=== PATIENT | female | born 1960 | race Caucasian/White ===

== ENCOUNTER 2017-02-28 20:43 | Emergency (ER) | payer MEDICAID ==
[~2017-02-28] VITALS: Ht 165.1 cm; Wt 68.0 kg
[~2017-02-28 20:43] MED LIST: ADVAIR 250/501 EA INH; ALBUTEROL0.09 MG/A3 IH; ALLEGRA60 M2 PO; AMIODARONE HCL200 MG PO; AMITRIPTYLINE H75 MG PO; ANAPROX DS550 MG PO; ASPIRIN CHEWABL81 MG PO; AUGMENTIN 875875 MG PO; AZOR 10 MG-20 M1 TAB; Albuterol Sulfat3 ML IH; BENZONATE100 MG PO; BP MED; BRIN10TA PO; CARVEDILOL25 MG PO; CEFTRIAXONE1 GM IJ; CEFUROXIME AXE250 MG PO; CIPRO500 MG PO; CIPROFLOXACIN500 M4 PO; CIPROFLOXACIN500 MG PO; CLINDAMYCIN150 MG PO; CLONIDINE0.1 MG PO; DAYPRO600 M1 PO; DELTASONE10 MG PO; DOXY 100100 MG IV; DOXYCYCLINE100 M2 PO; DULE1ARO INH; DULERA100; DUONEB 3 MG/3 ML3 M1 INH; DUONEB 3 MG/3 ML3 M1 NEB; DUONEB 3ML 3 MG/3 ML INH; DYAZIDE 25 MG-31 CAP PO; EC NAPROSYN375 MG PO; FLAGYL500 MG PO; FLONASE ALLERG9.9 ML NS; HYDRALAZINE HCL25 MG PO; HYDRALAZINE50 MG PO; HYDROCODONE BIT1 T11 PO; IMIPRAMINE HCL50 MG PO; INCRUSE EL62.5 MCG/A IH; INDERAL LA120 MG PO; K-TAB ER8 MEQ PO; KEPPRA500 MG PO; LATU40TA PO; LEADER NIC21 MG/24 H TD; LEVOTHYROXINE0.05 M1 PO; LEVOXYL50 MCG PO; LIPITOR40 MG PO; LISINOPRIL10 M1 PO; LISINOPRIL10 MG PO; LISINOPRIL20 MG PO; LISINOPRIL5 MG PO; METOPROLOL SR50 MG PO; MOTRIN600 MG PO; MOTRIN800 MG PO; Motrin,Rufen800 MG PO; NAPROSYN500 MG PO; NORCO 5-325 TA1 EACH PO; NOVAPLUS SOLU-125 MG IV; OMEPRAZOLE40 MG PO; PENICILLIN-VK500 M1 PO; PERCOCET 325 MG1 TA2 PO; PERCOCET 500 MG1 TAB PO; PREDNICOT10 MG PO; PREDNISONE10 MG PO; PREDNISONE2.5 MG PO; PREDNISONE20 MG PO; PREDNISONE5 MG PO; PRILOSEC40 MG PO; PROPANOLOL; PROPRANOLOL HC120 M1 PO; QUINAPRIL40 MG PO; ROBAXIN750 MG PO; SOLU-MEDROL40 MG PO; SPIRIVA -- 3018 MCG INH; SPIRIVA18 MCG PO; SUDAFED30 MG PO; SYMBICORT1 AER INH; TESSALON PERLE100 M1 PO; TRAMADOL HCL50 MG PO; TRIMOX500 MG PO; ULTRAM50 MG PO; VALIUM5 MG PO; VALTREX500 MG PO; VIBRA-TAB100 MG PO; VIBRAMYCIN100 MG PO; VICO75300 PO; VICODIN 5/500 505 MG PO; VICODIN 500 MG-1 TAB PO; VITAMIN D1000 IU PO; WELLBUTRIN SR150 MG PO; XANAX0.25 MG PO; XANAX0.5 MG PO; XARE15TA PO; XARE20MG PO
[2017-02-28 21:29] LABS: BASO % 0.4 % (0.0-1.0); EOS % 0.7 % (1.0-4.0); HEMATOCRIT 30.3 % (37.0-47.0); HEMOGLOBIN 9.2 g/dl (12.0-16.0); LYMPH # 0.8 10*3/uL (1.3-4.4); LYMPH % 13.8 % (27.0-41.0); MEAN CELL VOLUME 88.3 fl (81.0-99.0); MEAN CORPUSCULAR HGB 26.8 pg (27.0-31.0); MEAN CORPUSCULAR HGB CONC 30.4 g/dl (33.0-37.0); MONO # 0.3 10*3/uL (0.1-1.0); MONO % 5.8 % (3.0-9.0); NEUT # 4.3 10*3/uL (2.3-7.9); NEUT % 78.9 % (47.0-73.0); PLATELET COUNT AUTOMATED 121 10*3/uL (130-400); RED BLOOD COUNT 3.43 10*6/uL (4.10-5.10); RED CELL DISTRI WIDTH 13.2 % (0-14.5); WHITE BLOOD COUNT 5.5 10*3/uL (4.8-10.8)
[2017-02-28 21:44] LABS: BUN 15 mg/dl (7-24); CARBON DIOXIDE 31 mmol/L (21-32); CHLORIDE 110 mmol/L (98-107); EST GLOM FILT AFRICAN AMERICAN > 60 ml/min; GLUCOSE 115 mg/dL (65-99); POTASSIUM 4.1 mmol/L (3.5-5.1); SODIUM 147 mmol/L (136-145)
[2017-03-01 00:12] LABS: URINE AMPHETAMINES < 1000 (1000ng/ml); URINE BARBITURATES < 200 (200ng/ml); URINE COCAINE > 300 (300ng/ml)
[2017-03-01 00:33] LABS: BILIRUBIN NEGATIVE (NEGATIVE); BLOOD NEGATIVE (NEGATIVE); CLARITY CLEAR (CLEAR); COLOR YELLOW (YELLOW); GLUCOSE NEGATIVE (NEGATIVE); KETONE NEGATIVE (NEGATIVE); LEUKO ESTERASE NEGATIVE (NEGATIVE); NITRITE NEGATIVE (NEGATIVE); PROTEIN NEGATIVE (NEGATIVE); SPECIFIC GRAVITY 1.015 (1.005-1.030); UROBILINOGEN 0.2 E.U./dl (0.2-1.0)
[2017-03-01 00:43] LABS: URINE REFLEX COMMENT NO (NO)
[2017-03-01 05:31] VITALS: BP 135/86
== END 2017-03-01 09:26 | disposition home or self-care (01) ==
LOC: ED 20:43
PROVIDERS: Family Medicine
DX: F32.9 Major depressive disorder, single episode, unspecified (principal); J96.12 Chronic respiratory failure with hypercapnia; G43.909 Migraine, unspecified, not intractable, without status migrainosus; J44.9 Chronic obstructive pulmonary disease, unspecified; G40.909 Epilepsy, unspecified, not intractable, without status epilepticus; Z88.6 Allergy status to analgesic agent; Z88.2 Allergy status to sulfonamides; Z88.8 Allergy status to other drugs, medicaments and biological substances; Z98.51 Tubal ligation status; Z98.890 Other specified postprocedural states; Z79.82 Long term (current) use of aspirin; Z79.899 Other long term (current) drug therapy; Z99.81 Dependence on supplemental oxygen

== ENCOUNTER → 2017-04-23 | Day surgery (SDC) | payer MEDICAID ==
[~2017-04-23] VITALS: Ht 165.1 cm; Wt 69.4 kg
[~2017-04-23] MED LIST changes: +HYDROCODONE BIT1 T20 PO; +KROGER NIC21 MG/24 H T
--- NOTE | ~2017-04-23 | WILSON ---
[place], [place] CATARACT EXTRACTION [id number] UN[facility] #: [id number] ROOM: DOCTOR: CHATA BROWNLEE MD DATE: 04/23/17 PREOPERATIVE DIAGNOSIS: Cataract, left eye. POSTOPERATIVE DIAGNOSIS: Cataract, left eye. OPERATION: Extracapsular cataract extraction by phacoemulsification with posterior chamber intraocular lens implantation, left eye. ANESTHESIA: Monitored standby. OPERATIVE FINDINGS AND PROCEDURE: 2% Xylocaine topical anesthetic gel was applied to the eye in the preop area. The patient was taken to the operating room and prepped and draped in the standard fashion for sterile intraocular surgery. A time out procedure was performed verifying correct patient, correct site and corrects lens with Jared Brownlee M.D. The operating microscope was swung into position and the lid speculum was inserted. Using a paracentesis blade, a paracentesis was made through clear cornea. Viscoelastic was used to fill the anterior chamber. Using a metal keratome a 2.4 mm self-sealing clear corneal cataract incision was made temporally at the limbus. Using a pre-bent 25 gauge cystotome needle, a standard continuous curvilinear capsulorrhexis was performed. The anterior capsule was removed with forceps. The lens nucleus was hydrodissected and phacoemulsified in the posterior chamber. Cortical material was removed with the irrigation aspiration hand piece and the posterior capsule was then polished with a curet under irrigation. The posterior chamber and capsular bag were filled with viscoelastic. A posterior chamber intraocular lens manufactured by: [employer], Model #[id number], and 23.0 diopters in strength was then inserted into the posterior chamber and within the capsular bag using the lens cartridge and injector system. Viscoelastic was removed using the irrigation aspiration handpiece. The anterior chamber was filled with balanced salt solution through the paracentesis. Both the paracentesis site and cataract incisions were hydrated with BSS and verified to be water-tight and self-sealing. Cefuroxime 1 mg/0.1 mL was injected into the anterior chamber through the paracentesis site. The incision checked to be water-tight using a Weck-van[place] sponge. The integrity of the cataract wound and ocular tension were checked. Lid speculum and drapes were removed. One drop of Ocuflox was applied to the eye. The patient was transferred from the operating room to the recovery room in satisfactory condition. CHATA ZAPIEN MD CM:OPRECORD:CATARACT EXTRACTION 21 21 CHATA BROWNLEE MD 04/23/171821 BERNARD PRITCHARD MIS.R
[2017-04-23 08:34] VITALS: BP 132/88
[2017-04-23 09:15] VITALS: BP 157/83
[2017-04-23 09:30] VITALS: BP 153/88
[2017-04-23 09:45] VITALS: BP 148/89
== END | disposition home or self-care (01) ==
LOC: SDC 04-17 13:15
DX: H26.9 Unspecified cataract (principal); F41.9 Anxiety disorder, unspecified; F32.9 Major depressive disorder, single episode, unspecified; I10 Essential (primary) hypertension; B19.20 Unspecified viral hepatitis C without hepatic coma; Z86.14 Personal history of Methicillin resistant Staphylococcus aureus infection; Z86.73 Personal history of transient ischemic attack (TIA), and cerebral infarction without residual deficits; Z87.81 Personal history of (healed) traumatic fracture; J43.9 Emphysema, unspecified; I48.91 Unspecified atrial fibrillation; K21.9 Gastro-esophageal reflux disease without esophagitis; E03.9 Hypothyroidism, unspecified; Z98.890 Other specified postprocedural states; Z82.49 Family history of ischemic heart disease and other diseases of the circulatory system; Z87.891 Personal history of nicotine dependence; Z88.2 Allergy status to sulfonamides; Z88.8 Allergy status to other drugs, medicaments and biological substances

== ENCOUNTER 2017-05-12 22:22 | Emergency (ER) | payer MEDICAID ==
[~2017-05-12] VITALS: Ht 162.5 cm; Wt 73.9 kg
[2017-05-12 23:17] LABS: BASO # 0.1 10*3/uL (0.0-0.1); BASO % 1.1 % (0.0-1.0); EOS # 0.2 10*3/uL (0.0-0.4); EOS % 3.6 % (1.0-4.0); HEMOGLOBIN 10.4 g/dl (12.0-16.0); LYMPH # 2.3 10*3/uL (1.3-4.4); LYMPH % 40.7 % (27.0-41.0); MEAN CORPUSCULAR HGB 26.6 pg (27.0-31.0); MEAN CORPUSCULAR HGB CONC 30.6 g/dl (33.0-37.0); MONO # 0.5 10*3/uL (0.1-1.0); MONO % 8.1 % (3.0-9.0); NEUT # 2.6 10*3/uL (2.3-7.9); NEUT % 46.3 % (47.0-73.0); PLATELET COUNT AUTOMATED 119 10*3/uL (130-400); RED BLOOD COUNT 3.91 10*6/uL (4.10-5.10); RED CELL DISTRI WIDTH 13.2 % (0-14.5); WHITE BLOOD COUNT 5.5 10*3/uL (4.8-10.8)
[2017-05-12 23:30] LABS: PROTHROMBIN TIME 10.6 SECONDS (9.0-12.4)
[2017-05-12 23:35] LABS: ALBUMIN 3.6 gm/dl (3.1-4.5); ALKALINE PHOSPHATASE 104 U/L (45-117); BILIRUBIN, TOTAL 0.3 mg/dl (0.2-1.0); BUN 11 mg/dl (7-24); C-REACTIVE PROTEIN < 0.29 MG/DL (0-0.3); CARBON DIOXIDE 32 mmol/L (21-32); CHLORIDE 104 mmol/L (98-107); EST GLOM FILT AFRICAN AMERICAN > 60 ml/min; GLUCOSE 89 mg/dL (65-99); MAGNESIUM 1.7 mg/dL (1.5-2.1); SGOT/AST 37 IU/L (3-35); SGPT/ALT 25 U/L (12-78); SODIUM 142 mmol/L (136-145); TOTAL PROTEIN 6.4 gm/dL (6.4-8.2); TROPONIN I < 0.015 ng/ml (<0.045)
[2017-05-12 23:46] LABS: BILIRUBIN NEGATIVE (NEGATIVE); BLOOD NEGATIVE (NEGATIVE); CLARITY SL CLOUDY (CLEAR); COLOR YELLOW (YELLOW); GLUCOSE NEGATIVE (NEGATIVE); KETONE NEGATIVE (NEGATIVE); LEUKO ESTERASE TRACE (NEGATIVE); NITRITE NEGATIVE (NEGATIVE); PH 6.5 (5.0-9.0); PROTEIN NEGATIVE (NEGATIVE); SPECIFIC GRAVITY <= 1.005 (1.005-1.030); UROBILINOGEN 0.2 E.U./dl (0.2-1.0)
[2017-05-12 23:53] LABS: BACTERIA 2+; URINE REFLEX COMMENT YES (NO)
[2017-05-13 01:10] VITALS: BP 165/102
[2017-05-19] MEDS ORDERED: AMITRIPTYLINE25 MG PO (13:37)
== END 2017-05-13 02:40 | disposition short-term general hospital (02) ==
LOC: ED 22:22
PROVIDERS: Emergency Medicine Emergency Medical Services
DX: G45.9 Transient cerebral ischemic attack, unspecified (principal); J44.9 Chronic obstructive pulmonary disease, unspecified; G43.909 Migraine, unspecified, not intractable, without status migrainosus; Z88.6 Allergy status to analgesic agent; Z88.2 Allergy status to sulfonamides; Z88.8 Allergy status to other drugs, medicaments and biological substances; Z79.899 Other long term (current) drug therapy; Z79.82 Long term (current) use of aspirin

== ENCOUNTER → 2017-05-21 | Day surgery (SDC) | payer MEDICAID ==
[~2017-05-21] VITALS: Ht 162.5 cm; Wt 73.9 kg
[~2017-05-21] MED LIST changes: +AMITRIPTYLINE25 MG PO
--- NOTE | ~2017-05-21 | O ---
[place], [place] OPERATIVE NOTE NAME: LIONEL FRANCISCO UNIT #: [id number] ROOM: DOCTOR: CHATA KEY MD BIRTHDATE: [birth year] DOS: 05/21/2017 PREOPERATIVE DIAGNOSIS: Cataract, right eye. POSTOPERATIVE DIAGNOSIS: Cataract, right eye. OPERATION: Extracapsular cataract extraction by phacoemulsification with posterior chamber intraocular lens implantation, right eye. ANESTHESIA: Monitored standby. OPERATIVE FINDINGS AND PROCEDURE: 2% Xylocaine topical anesthetic gel was applied to the eye in the preop area. The patient was taken to the operating room and prepped and draped in the standard fashion for sterile intraocular surgery. A time out procedure was performed verifying correct patient, correct site and corrects lens with Jared Key M.D. The operating microscope was swung into position and the lid speculum was inserted. Using a Linda paracentesis blade, a paracentesis was made through clear cornea. Viscoelastic was used to fill the anterior chamber. Using a metal keratome a 2.4 mm self-sealing clear corneal cataract incision was made temporally at the limbus. Using a pre-bent 25 gauge cystotome needle, a standard continuous curvilinear capsulorrhexis was performed. The anterior capsule was removed with forceps. The lens nucleus was hydrodissected and phacoemulsified in the posterior chamber. Cortical material was removed with the irrigation aspiration hand piece and the posterior capsule was then polished with a curet under irrigation. The posterior chamber and capsular bag were filled with viscoelastic. A posterior chamber intraocular lens manufactured by: [employer], Model #[id number], and 22.5 diopters in strength were then inserted into the posterior chamber and within the capsular bag using the lens cartridge and injector system. Viscoelastic was removed using the irrigation aspiration handpiece. The anterior chamber was filled with balanced salt solution through the paracentesis. Both the paracentesis site and cataract incisions were hydrated with BSS and verified to be water-tight and self-sealing. Cefuroxime 1 mg/0.1 mL was injected into the anterior chamber through the paracentesis site. The incision checked to be water-tight using a Weck-Yu sponge. The integrity of the cataract wound and ocular tension were checked. Lid speculum and drapes were removed. The patient was transferred from the operating room to the recovery room in satisfactory condition. [place], [place] OPERATIVE NOTE NAME: LIONEL FRANCISCO UNIT #: [id number] ROOM: DOCTOR: CHATA KEY MD BIRTHDATE: [birth year] CHATA KEY MD CM:OPRECORD:OPERATIVE NOTE 1135 [id number] CHATA KEY MD 05/21/17 1337 interface
[2017-05-21 10:36] VITALS: BP 141/91
[2017-05-21 11:33] VITALS: BP 127/88
[2017-05-21 12:00] VITALS: BP 171/98
== END ==
LOC: SDC 05-20 14:00
DX: H26.9 Unspecified cataract (principal); I10 Essential (primary) hypertension; J43.9 Emphysema, unspecified; K21.9 Gastro-esophageal reflux disease without esophagitis; F41.9 Anxiety disorder, unspecified; F32.9 Major depressive disorder, single episode, unspecified; F17.210 Nicotine dependence, cigarettes, uncomplicated; Z98.890 Other specified postprocedural states; Z88.1 Allergy status to other antibiotic agents; Z88.8 Allergy status to other drugs, medicaments and biological substances; J44.9 Chronic obstructive pulmonary disease, unspecified; B19.20 Unspecified viral hepatitis C without hepatic coma; Z86.73 Personal history of transient ischemic attack (TIA), and cerebral infarction without residual deficits; E07.9 Disorder of thyroid, unspecified; Z79.899 Other long term (current) drug therapy; G40.909 Epilepsy, unspecified, not intractable, without status epilepticus

== ENCOUNTER 2017-07-12 13:51 | Emergency (ER) | payer MEDICAID ==
[~2017-07-12] VITALS: Ht 160 cm; Wt 72.6 kg
[2017-07-12 14:39] LABS: BASO % 0.6 % (0.0-1.0); EOS # 0.2 10*3/uL (0.0-0.4); EOS % 2.5 % (1.0-4.0); HEMATOCRIT 38.5 % (37.0-47.0); HEMOGLOBIN 11.8 g/dl (12.0-16.0); LYMPH # 1.3 10*3/uL (1.3-4.4); LYMPH % 18.5 % (27.0-41.0); MEAN CELL VOLUME 88.5 fl (81.0-99.0); MEAN CORPUSCULAR HGB 27.1 pg (27.0-31.0); MEAN CORPUSCULAR HGB CONC 30.6 g/dl (33.0-37.0); MEAN PLATELET VOLUME 9.9 fl (9.6-12.3); MONO # 0.4 10*3/uL (0.1-1.0); MONO % 5.4 % (3.0-9.0); NEUT # 5.2 10*3/uL (2.3-7.9); NEUT % 72.4 % (47.0-73.0); PLATELET COUNT AUTOMATED 151 10*3/uL (130-400); RED BLOOD COUNT 4.35 10*6/uL (4.10-5.10); WHITE BLOOD COUNT 7.2 10*3/uL (4.8-10.8)
[2017-07-12 14:57] LABS: ALBUMIN 3.8 gm/dl (3.1-4.5); ALKALINE PHOSPHATASE 108 U/L (45-117); BUN 16 mg/dl (7-24); CHLORIDE 99 mmol/L (98-107); CREATININE 0.97 mg/dL (0.55-1.02); MAGNESIUM 2.2 mg/dL (1.5-2.1); POTASSIUM 3.9 mmol/L (3.5-5.1); SGOT/AST 44 IU/L (3-35); SGPT/ALT 31 U/L (12-78); SODIUM 140 mmol/L (136-145); TOTAL PROTEIN 7.1 gm/dL (6.4-8.2)
[2017-07-12 15:02] LABS: TROPONIN I < 0.015 ng/ml (<0.045)
[2017-07-12 15:04] VITALS: BP 149/70
[2017-07-12 15:10] LABS: ACT PARTIAL THROMBO TIME 24.3 SECONDS (20.8-31.5)
== END 2017-07-12 16:14 | disposition home or self-care (01) ==
LOC: ED 13:51
PROVIDERS: Nurse Practitioner Family
DX: R20.8 Other disturbances of skin sensation (principal); J96.12 Chronic respiratory failure with hypercapnia; I10 Essential (primary) hypertension; Z86.73 Personal history of transient ischemic attack (TIA), and cerebral infarction without residual deficits; Z98.51 Tubal ligation status; Z98.890 Other specified postprocedural states; Z79.899 Other long term (current) drug therapy; Z79.82 Long term (current) use of aspirin; Z88.6 Allergy status to analgesic agent; Z88.2 Allergy status to sulfonamides; Z88.8 Allergy status to other drugs, medicaments and biological substances; Z99.81 Dependence on supplemental oxygen

== ENCOUNTER 2017-11-06 23:10 | Emergency (ER) | payer MEDICAID ==
[~2017-11-06] VITALS: Ht 165.1 cm; Wt 78.9 kg
[2017-11-06 23:49] LABS: BASO # 0.1 10*3/uL (0.0-0.1); BASO % 0.8 % (0.0-1.0); EOS # 0.3 10*3/uL (0.0-0.4); EOS % 5.2 % (1.0-4.0); HEMATOCRIT 36.4 % (37.0-47.0); HEMOGLOBIN 11.4 g/dl (12.0-16.0); LYMPH % 30.4 % (27.0-41.0); MEAN CELL VOLUME 91.2 fl (81.0-99.0); MEAN CORPUSCULAR HGB 28.6 pg (27.0-31.0); MEAN CORPUSCULAR HGB CONC 31.3 g/dl (33.0-37.0); MEAN PLATELET VOLUME 10.3 fl (9.6-12.3); MONO # 0.6 10*3/uL (0.1-1.0); MONO % 9.6 % (3.0-9.0); NEUT # 3.5 10*3/uL (2.3-7.9); NEUT % 53.4 % (47.0-73.0); PLATELET COUNT AUTOMATED 110 10*3/uL (130-400); RED BLOOD COUNT 3.99 10*6/uL (4.10-5.10); RED CELL DISTRI WIDTH 13.1 % (0-14.5); WHITE BLOOD COUNT 6.5 10*3/uL (4.8-10.8)
[2017-11-07 00:06] LABS: ALBUMIN 3.5 gm/dl (3.1-4.5); ALKALINE PHOSPHATASE 77 U/L (45-117); BUN 4 mg/dl (7-24); CHLORIDE 103 mmol/L (98-107); CREATININE 0.66 mg/dL (0.55-1.02); POTASSIUM 3.9 mmol/L (3.5-5.1); SGOT/AST 38 IU/L (3-35); SGPT/ALT 26 U/L (12-78); SODIUM 142 mmol/L (136-145); TOTAL PROTEIN 6.6 gm/dL (6.4-8.2)
[2017-11-07 00:07] LABS: TROPONIN I 0.047 ng/ml (<0.045)
[2017-11-07] MEDS ORDERED: Phenergan25 MG PO (01:41)
[2017-11-07 02:35] VITALS: BP 154/86
== END 2017-11-07 02:20 | disposition home or self-care (01) ==
LOC: ED 23:10
PROVIDERS: Internal Medicine
DX: K52.9 Noninfective gastroenteritis and colitis, unspecified (principal); J44.9 Chronic obstructive pulmonary disease, unspecified; G43.909 Migraine, unspecified, not intractable, without status migrainosus; Z98.51 Tubal ligation status; Z98.890 Other specified postprocedural states; Z86.73 Personal history of transient ischemic attack (TIA), and cerebral infarction without residual deficits; Z79.899 Other long term (current) drug therapy; Z88.6 Allergy status to analgesic agent; Z88.2 Allergy status to sulfonamides; Z88.8 Allergy status to other drugs, medicaments and biological substances; Z79.82 Long term (current) use of aspirin; Z99.81 Dependence on supplemental oxygen

== ENCOUNTER → 2018-02-18 | Outpatient (CLI) | payer MEDICAID ==
[~2018-02-18] MED LIST changes: +Phenergan25 MG PO
[2018-02-18 12:53] LABS: BASO % 0.4 % (0.0-1.0); EOS # 0.1 10*3/uL (0.0-0.4); EOS % 0.8 % (1.0-4.0); HEMATOCRIT 35.9 % (37.0-47.0); HEMOGLOBIN 11.6 g/dl (12.0-16.0); LYMPH # 1.3 10*3/uL (1.3-4.4); MEAN CELL VOLUME 91.6 fl (81.0-99.0); MEAN CORPUSCULAR HGB 29.6 pg (27.0-31.0); MEAN CORPUSCULAR HGB CONC 32.3 g/dl (33.0-37.0); MEAN PLATELET VOLUME 10.9 fl (9.6-12.3); MONO # 0.3 10*3/uL (0.1-1.0); MONO % 3.3 % (3.0-9.0); NEUT # 6.2 10*3/uL (2.3-7.9); NEUT % 79.1 % (47.0-73.0); PLATELET COUNT AUTOMATED 114 10*3/uL (130-400); RED BLOOD COUNT 3.92 10*6/uL (4.10-5.10); RED CELL DISTRI WIDTH 12.3 % (0-14.5); WHITE BLOOD COUNT 7.9 10*3/uL (4.8-10.8)
[2018-02-18 13:18] LABS: ALBUMIN 3.9 gm/dl (3.1-4.5); ALKALINE PHOSPHATASE 76 U/L (45-117); BUN 8 mg/dl (7-24); CHLORIDE 102 mmol/L (98-107); CHOLESTEROL 108 mg/dL (<200); CREATININE 0.64 mg/dL (0.55-1.02); FREE T4 1.24 ng/dl (0.76-1.46); HDL CHOLESTEROL 61 mg/dl (40-60); LDL CHOLESTEROL 35 mg/dL (9-159); POTASSIUM 3.8 mmol/L (3.5-5.1); SGOT/AST 32 IU/L (3-35); SGPT/ALT 25 U/L (12-78); SODIUM 143 mmol/L (136-145); TOTAL PROTEIN 6.8 gm/dL (6.4-8.2); TRIGLYCERIDES 62 mg/dl (<150); VLDL CHOLESTEROL 12 mg/dL (6-40)
[2018-02-18 14:26] LABS: VITAMIN D, 25-HYDROXY 17.2 ng/mL (30-100)
== END ==
LOC: LAB 11:58 → MEDIPORT 12:00
PROVIDERS: Internal Medicine
DX: R53.81 Other malaise (principal); E55.9 Vitamin D deficiency, unspecified; E78.2 Mixed hyperlipidemia; Z13.1 Encounter for screening for diabetes mellitus; Z13.21 Encounter for screening for nutritional disorder; Z13.220 Encounter for screening for lipoid disorders

== ENCOUNTER 2018-03-12 06:04 | Inpatient (IN) | payer MEDICAID ==
[~2018-03-12] VITALS: Ht 165.1 cm; Wt 81.8 kg
[2018-03-12] VITALS (8 sets, daily range): BP systolic 124–169; BP diastolic 73–119
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
--- NOTE | ~2018-03-12 | DS ---
[place], [place] DISCHARGE SUMMARY NAME: LIONEL FRANCISCO UNIT #: [id number] ROOM: 408 DOCTOR: SHELL DING MD BIRTHDATE: [birth year] DOS: 03/15/2018 DISCHARGE DIAGNOSES: 1. Acute exacerbation of severe underlying chronic obstructive pulmonary disease with acute over chronic respiratory failure. 2. Minimal elevation of troponin I levels evaluated by clam grader, Dr. Rodney, believed to be secondary to hypoxemia from respiratory failure. 3. Nicotine smoke dependence. 4. Gastroesophageal reflux disease and esophagitis. 5. Hypothyroidism. 6. History of ischemic infarct with seizure disorder. 7. History of bipolar disorder. 8. Chronic lower back pains. 9. Generalized anxiety disorder. 10. Benign essential hypertension. HOSPITAL COURSE: 1. The patient was admitted by Dr. Ana Mary with complaints of sore throat for a few days and later on also increasing shortness of breath for about a week. The patient was diagnosed as having acute exacerbation of COPD with acute over chronic respiratory failure. The patient has advanced emphysema and she was started on IV corticosteroids, breathing treatments with DuoNeb, antibiotic and Dr. Mcfadden, the cork molder, was also consulted to see her. Dr. Mcfadden has cleared her for discharge to home today. Considering that patient has severe underlying emphysema with chronic respiratory failure and continued nicotine smoke dependence and noncompliance with treatment, I expect patient to the returning to the hospital for repeat admissions for similar diagnosis and respiratory failure. This is to be expected. 2. The patient has some elevation of troponin I level which was evaluated by her clam grader, Dr. Rodney. Dr. Rodney attributed this to her hypoxemia and acute over chronic respiratory failure. The patient says that Dr. Rodney has had performed a heart catheterization on her 3 years back, which showed normal coronaries and after that she also had a cardiac stress test, which was normal. The patient is chest pain free now and Dr. Rodney has not recommended any further workup at this time. 3. Nicotine smoke dependence. The patient has been encouraged to stop. The patient is already on nicotine patch. 4. Echocardiogram showed normal left ventricular dysfunction. No dyskinesia. 5. Generalized anxiety disorder is being followed and controlled. 6. Benign essential hypertension. Blood pressures remaining slightly on the higher range, to be followed and treated as an outpatient. 7. History of previous ischemic infarct, cerebral infarct and seizure disorder, presently without any seizures with Keppra for treatment. LABORATORY DATA: Sputum cultures normal. Urine cultures normal. Echocardiogram normal. Troponin I levels maxed out at 0.078 and they were reducing before discharge. DISCHARGE MANAGEMENT: Protonix 40 mg a day, Medrol Dosepak, nicotine patch 21 mg daily, lisinopril 20 mg a day, Keppra 750 mg b.i.d., aspirin 81 mg a day, [place], [place] DISCHARGE SUMMARY NAME: LIONEL FRANCISCO UNIT #: [id number] ROOM: [facility] DOCTOR: TIMUR DORSEY,SHELL Henry BIRTHDATE: [birth year] Dulera twice a day, levothyroxine 50 mcg daily, DuoNeb every 4 hours, promethazine 25 mg every 8 hours p.r.n., Vicodin q.i.d. p.r.n. for pain, Xanax 1 mg t.i.d. p.r.n. for severe anxiety. Follow up with Dr. Mary this week in the office. SHELL DING MD CM:ANN [id number] [id number] SHELL DING MD 03/15/182103 interface
--- NOTE | ~2018-03-12 | PR ---
[place], [place] PROGRESS NOTE NAME: LIONEL FRANCISCO UNIT #: [id number] ROOM: 408 DOCTOR: JOSE JUAN CORONA MD BIRTHDATE: [birth year] DOS: 03/13/2018 SUBJECTIVE: The patient states that she feels better, does not have any new complaints. OBJECTIVE: VITAL SIGNS: Shows pressure 110/70, pulse of 68, respirations 20, temperature 99. LUNGS: Diminished breath sounds. No wheezes heard this morning. Tachypnea seems to be much improved. She is no longer working the accessory muscles. HEART: Regular. ABDOMEN: Soft. EXTREMITIES: No edema. ASSESSMENT AND PLAN: 1. Acute exacerbation of chronic obstructive pulmonary disease, improved. 2. Elevated troponin. Awaiting Dr. Rodney's opinion. Echocardiogram showed normal LV function. EKG was unremarkable. The patient did have cardiac catheterization about 4 years ago, which did not show any coronary artery disease, may need a stress test as an outpatient. 3. Moderate cigarette smoker. Advised cessation. JOSE JUAN CORONA MD CM:PNTRANS [id number] JOSE JUAN CORNOA MD 03/14/18 0050 interface
--- NOTE | ~2018-03-12 | EKG ---
[place], [place] ELECTROCARDIOGRAM REPORT NAME: LIONEL FRANCISCO UNIT #: [id number] ROOM: 408 DOCTOR: MIGUELINA BEASLEY MD BIRTHDATE: [birth year] DOS: 03/12/2018 TIME: 0737 hours. Normal sinus rhythm at 72 beats per minute. Flattened T waves in lateral chest lead. When compared with an ECG of the previous day, T-wave in lateral chest leads have become flatten now. MIGUELINA BEASLEY MD CM:EKGRPT:ELECTROCARDIOGRAM REPORT 1654 2153 MIGUELINA BEASLEY MD
--- NOTE | ~2018-03-12 | WRIGHTHP ---
[place], [place] PATIENT HISTORY AND PHYSICAL EXAM NAME: LIONEL FRANCISCO UNIT #: [id number] ROOM: 408 DOCTOR: JOSE JUAN CORONA MD BIRTHDATE: [birth year] DOS: 03/12/2018 HISTORY OF PRESENT ILLNESS: The patient is very well known to us, 57-year-old, who has had a slight sore throat and cough for a few days, has increasingly been short of breath for the last one week. She denies having any chest pains or palpitations, does not have any fever or chills. PAST MEDICAL HISTORY: Significant for: 1. COPD. 2. Chronic respiratory failure. 3. Nicotine abuse. 4. History of ischemic infarct with seizure disorder. 5. Bipolar disorder. 6. Chronic low back pain. 7. Generalized anxiety disorder. 8. Benign hypertension. MEDICATIONS: She is currently on are breathing treatments, Symbicort, Xanax, aspirin, Post, Keppra, levothyroxine, lisinopril, omeprazole. SOCIAL HISTORY: Smoker of about 1 pack of cigarettes a day. Denies using any alcohol. PHYSICAL EXAMINATION: GENERAL: She is awake and alert and oriented. VITAL SIGNS: Blood pressure is 134/88, pulse of 82, respirations 20, temperature 98.5. LUNGS: Diminished breath sounds, scattered wheezes heard bilaterally. She does have significant tachypnea with accessory muscles, working. HEART: Regular. ABDOMEN: Soft, scaphoid. EXTREMITIES: Without any edema. LABORATORY DATA: White cell count is normal at 9.3, hemoglobin 12.1. Chest x-ray shows no pathology. Lactic acid normal. Comprehensive within normal limits. ASSESSMENT AND PLAN: 1. Acute exacerbation of chronic obstructive pulmonary disease. The patient is noted to have significant bronchospasm, IV steroids, breathing treatments, and antibiotics have been added. 2. Elevated troponin noted. The patient will be ordered serial set of troponins and an echocardiogram and proceed with further management depending on the troponin results. [place], [place] PATIENT HISTORY AND PHYSICAL EXAM NAME: LIONEL FRANCISCO UNIT #: [id number] ROOM: 408 DOCTOR: JOSE JUAN CORONA MD BIRTHDATE: [birth year] JOSE JUAN CORONA MD CM:HISPHYS:PATIENT HISTORY AND PHYSICAL EXAMINATION 0850 JOSE JUAN CORONA MD 03/12/18 0945 interface
--- NOTE | ~2018-03-12 | EKG ---
[place], [place] ELECTROCARDIOGRAM REPORT NAME: LIONEL FRANCISCO UNIT #: [id number] ROOM: 408 DOCTOR: MIGUELINA BEASLEY MD BIRTHDATE: [birth year] DOS: 03/12/2018 TIME: 0628 hours. Normal sinus rhythm at 90 beats per minute. The tracing is normal. No previous tracing is available for comparison. MIGUELINA BEASLEY MD CM:EKGRPT:ELECTROCARDIOGRAM REPORT 1654 2152 MIGUELINA BEASLEY MD
--- NOTE | ~2018-03-12 | PR ---
[place], [place] PROGRESS NOTE NAME: LIONEL FRANCISCO UNIT #: [id number] ROOM: 408 DOCTOR: SHELL DING MD BIRTHDATE: [birth year] DOS: 03/14/2018 SUBJECTIVE: The patient is still short of breath and requesting a pulmonary consult. OBJECTIVE: GENERAL APPEARANCE: The patient is alert and oriented x 3, in no visible distress. VITAL SIGNS: Blood pressure 144/88, heart rate of 90 beats per minute, temperature of 99.4 degrees Fahrenheit, breathing 22 times per minute. HEENT AND NECK: Exam within normal limits. CARDIOVASCULAR SYSTEM: Heart rate is regular in rate and rhythm. S1 and S2 normally audible. LUNGS: Decreased breath sounds all over, very slight expiratory wheeze. ABDOMEN: Soft, nontender. No obvious organomegaly. Bowel sounds are present. EXTREMITIES: Without significant cyanosis or edema. IMPRESSION: 1. The patient with acute exacerbation of severe underlying chronic obstructive pulmonary disease with acute over chronic respiratory failure. I will consult Dr. Mcfadden also, the access rn to follow her. The patient on bronchodilators, antibiotic, oxygen and corticosteroids. 2. Elevated troponin level. Troponin I level evaluated by Dr. Rodney. Dr. Rodney believes that hypoxemia from respiratory failure caused the troponin I level elevation. 3. Nicotine smoke dependence. The patient encouraged to stop. 4. Gastroesophageal reflux disease and esophagitis, asymptomatic with Protonix. 5. Hypothyroidism, treated with levothyroxine. SHELL DING MD CM:PNTRANS 1603 11 SHELL DING MD 03/14/18 221 interface
--- NOTE | ~2018-03-12 | CON ---
[place], [place] REPORT OF CONSULTATION NAME: LIONEL FRANCISCO UNIT #: [id number] ROOM: 408 DOCTOR: MIGUELINA BEASLEY MD BIRTHDATE: [birth year] DOS: 03/13/2018 HISTORY OF PRESENT ILLNESS: This is a 57-year-old -Citizen Of [place] woman with a history of severe COPD and uses oxygen at all times. She has chronic respiratory failure and also had an ischemic stroke recently. She has bipolar disorder along with anxiety and has moderate coronary artery disease by heart catheterization done in 2013 by me, shows essential hypertension. She was admitted to the hospital because of increasing shortness of breath and anxiety exacerbation. She had some issues at home with neighbors and people while cutting the grass and this got her worked up. She has been coughing up some green phlegm for the last week or so, but no hemoptysis or blood in the stools. She has not had any chest pain, palpitation or any loss of consciousness and very little swelling in the legs. I was asked to see her because of slight increase in troponin I level to 0.056, normal is less than 0.05. Her activity is limited by her COPD, but when she does walk around, she does not have any chest pain, only shortness of breath. HOME MEDICATIONS: Include omeprazole, lisinopril, levothyroxine, Keppra, Murray, Xanax, Symbicort and aspirin. PHYSICAL EXAMINATION: GENERAL: This revealed the patient who is alert, oriented. She has oxygen on and she is quite tachypneic and very anxious. She has tremulous hands. VITAL SIGNS: Pulse is regular at 76 beats per minute, blood pressure 140/89. Highest blood pressure 169/119. NECK: JVP is normal. AJR is negative. There is no carotid bruit. HEART: There is no cardiomegaly, no murmurs are present. Pedal pulses are palpable. EXTREMITIES: There is no edema at all in the lower extremities. ____ she is tachypneic. Percussion note reveals hyperresonance bilaterally. LUNGS: Breath sounds are severely diminished with adventitious sounds and prolonged. Expiratory phase. LABORATORY DATA: An ECG was normal. She had an echocardiogram done yesterday, it demonstrated an EF of about 60% with normal wall motion and thickened mitral leaflets with [id number] mitral regurgitation, no different than ECG done a couple of years ago. IMPRESSION: Slightly increased troponin I level is most likely due to hypoxia and COPD exacerbation. I doubt if she had true myocardial infarction. Another ECG will be done and if she has no further issues, I do not recommend any further workup. I thank for this consult. [place], [place] REPORT OF CONSULTATION NAME: NOLANLIONEL Hussein UNIT #: [id number] ROOM: [facility] DOCTOR: MIGUELINA BEASLEY MD BIRTHDATE: [birth year] MIGUELINA BEASLEY MD CM:CONSTR:REPORT OF CONSULTATION 0626 03/13/18 2352 interface
[~2018-03-12 06:04] MED LIST changes: +HYDROCODON-ACE1 EACH PO; -HYDROCODONE BIT1 T20 PO
[2018-03-12 06:37] LABS: BASO # 0.1 10*3/uL (0.0-0.1); BASO % 0.5 % (0.0-1.0); EOS # 0.3 10*3/uL (0.0-0.4); EOS % 2.8 % (1.0-4.0); HEMATOCRIT 38.5 % (37.0-47.0); HEMOGLOBIN 12.1 g/dl (12.0-16.0); LYMPH # 1.8 10*3/uL (1.3-4.4); MEAN CELL VOLUME 93.9 fl (81.0-99.0); MEAN CORPUSCULAR HGB 29.5 pg (27.0-31.0); MEAN CORPUSCULAR HGB CONC 31.4 g/dl (33.0-37.0); MEAN PLATELET VOLUME 10.3 fl (9.6-12.3); MONO # 0.7 10*3/uL (0.1-1.0); MONO % 7.4 % (3.0-9.0); NEUT # 6.5 10*3/uL (2.3-7.9); NEUT % 70.1 % (47.0-73.0); PLATELET COUNT AUTOMATED 118 10*3/uL (130-400); RED CELL DISTRI WIDTH 12.5 % (0-14.5); WHITE BLOOD COUNT 9.3 10*3/uL (4.8-10.8)
[2018-03-12 06:55] LABS: ALBUMIN 3.7 gm/dl (3.1-4.5); ALKALINE PHOSPHATASE 84 U/L (45-117); BUN 8 mg/dl (7-24); CHLORIDE 106 mmol/L (98-107); CREATININE 0.56 mg/dL (0.55-1.02); SGOT/AST 40 IU/L (3-35); SGPT/ALT 28 U/L (12-78); SODIUM 145 mmol/L (136-145); TOTAL PROTEIN 6.8 gm/dL (6.4-8.2)
[2018-03-12 07:02] LABS: TROPONIN I 0.076 ng/ml (<0.045)
[2018-03-12 13:40] LABS: BILIRUBIN NEGATIVE (NEGATIVE); BLOOD NEGATIVE (NEGATIVE); CLARITY CLEAR (CLEAR); COLOR YELLOW (YELLOW); GLUCOSE NEGATIVE (NEGATIVE); KETONE NEGATIVE (NEGATIVE); LEUKO ESTERASE NEGATIVE (NEGATIVE); NITRITE NEGATIVE (NEGATIVE); PH 5.5 (5.0-9.0); SPECIFIC GRAVITY 1.015 (1.005-1.030); UROBILINOGEN 0.2 E.U./dl (0.2-1.0)
[2018-03-12 13:49] LABS: BACTERIA 1+
[2018-03-13] VITALS: BP 140/89
[2018-03-13 08:00] VITALS: BP 110/70
[2018-03-13 12:00] VITALS: BP 100/74
[2018-03-13 16:00] VITALS: BP 142/79
[2018-03-13 20:00] VITALS: BP 142/68
[2018-03-14 00:18] VITALS: BP 145/85
[2018-03-14 08:00] VITALS: BP 145/82
[2018-03-14 12:00] VITALS: BP 144/88
[2018-03-14 16:00] VITALS: BP 140/80
[2018-03-14 20:00] VITALS: BP 151/92
[2018-03-15] VITALS: BP 148/88
[2018-03-15 08:00] VITALS: BP 150/82
[2018-03-15 12:00] VITALS: BP 158/98
[2018-03-15] MEDS ORDERED: MEDROL DOSEPAK4 MG PO (14:14)
== END 2018-03-15 16:45 | disposition home or self-care (01) | DRG 189 ==
LOC: ED 06:04 → EDHOLD 08:31 → 4E 08:31
PROVIDERS: Emergency Medicine Emergency Medical Services
DX: J96.21 Acute and chronic respiratory failure with hypoxia (principal); I48.91 Unspecified atrial fibrillation; J44.1 Chronic obstructive pulmonary disease with (acute) exacerbation; G40.909 Epilepsy, unspecified, not intractable, without status epilepticus; E03.9 Hypothyroidism, unspecified; F17.200 Nicotine dependence, unspecified, uncomplicated; J96.22 Acute and chronic respiratory failure with hypercapnia; F17.210 Nicotine dependence, cigarettes, uncomplicated; I10 Essential (primary) hypertension; F32.9 Major depressive disorder, single episode, unspecified; G43.909 Migraine, unspecified, not intractable, without status migrainosus; G89.29 Other chronic pain; M54.9 Dorsalgia, unspecified; F41.1 Generalized anxiety disorder; I25.10 Atherosclerotic heart disease of native coronary artery without angina pectoris; J20.8 Acute bronchitis due to other specified organisms; K21.0 Gastro-esophageal reflux disease with esophagitis; Z91.14 Patient's other noncompliance with medication regimen; Z87.81 Personal history of (healed) traumatic fracture; Z88.2 Allergy status to sulfonamides; Z88.1 Allergy status to other antibiotic agents; Z98.51 Tubal ligation status; Z98.891 History of uterine scar from previous surgery; Z82.49 Family history of ischemic heart disease and other diseases of the circulatory system; Z82.5 Family history of asthma and other chronic lower respiratory diseases

== ENCOUNTER 2018-04-01 11:27 | Inpatient (IN) | payer MEDICAID ==
[~2018-04-01] VITALS: Ht 165.1 cm; Wt 79.8 kg
--- NOTE | ~2018-04-01 | PR ---
[place], [place] PROGRESS NOTE NAME: LIONEL FRANCISCO UNIT #: [id number] ROOM: 404 DOCTOR: JOSE JUAN CORONA MD BIRTHDATE: [birth year] DOS: 04/05/2018 SUBJECTIVE: The patient is doing well and has no complaints today. She seems to be less anxious. OBJECTIVE: VITAL SIGNS: Blood pressure is 119/74, pulse of 70, respirations 20, temperature 98.0. LUNGS: Diminished breath sounds. HEART: Regular. ABDOMEN: Obese, soft, nontender. EXTREMITIES: Without any edema. ASSESSMENT AND PLAN: 1. Acute exacerbation of chronic obstructive pulmonary disease, improving. 2. Generalized anxiety disorder, improved this morning. 3. Benign hypertension, controlled. 4. The patient is stable. Plan is to discharge her to home today to follow up as an outpatient. JOSE JUAN CORONA MD CM:PNTRANS [id number] JOSE JUAN CORONA MD 04/06/18 0024 interface
--- NOTE | ~2018-04-01 | PR ---
[place], [place] PROGRESS NOTE NAME: LIONEL FRANCISCO UNIT #: [id number] ROOM: 404 DOCTOR: JUAN RUIZ MD,BECKY BIRTHDATE: [birth year] DOS: 04/03/2018 SUBJECTIVE: She has been noted significant reduction in respiratory symptom after bronchoscopy. She has not been noted symptoms of chest pain or abdominal pain. The patient was not noted any symptoms of hemoptysis, fever or chills. OBJECTIVE: VITAL SIGNS: For the patient which has been recorded showed the temperature noted as normal. The respiratory rate of the patient is recorded as 20. Height 5 feet 8 inches, blood pressure 126/74. Pulse oxygen saturation of on 3 liters nasal cannula 99% saturation. HEENT: Examination shows head was atraumatic. Eyes nonicterus. NECK: Supple. CARDIOVASCULAR: S1, S2 audible. LUNGS: The patient noted without any wheezing or crackles. Breaths are noted moderately diminished bilaterally. ABDOMEN: Soft, nontender. EXTREMITIES: Without acute edema. LABORATORY DATA: Gram stain, few white blood cells, few gram-positive cocci in pairs, chains and clusters and few epithelial cells. Normal kenn noted for bronchial washings of yesterday. IMPRESSION: Resolving acute exacerbation of chronic obstructive pulmonary disease, acute tracheobronchitis status post bronchoscopy, removal of the mucus impaction with reduction of the respiratory symptom. PLAN OF TREATMENT: The patient could be planned for discharge home tomorrow. In the meantime, continue current therapy, plan of management and other care. Usual treatment. BECKY MARTINEZ MD CM:PNTRANS [phone] BECKY RUIZ MD 04/03/18 1322 interface
--- NOTE | ~2018-04-01 | PR ---
[place], [place] PROGRESS NOTE NAME: LIONEL FRANCISCO UNIT #: [id number] ROOM: 404 DOCTOR: JUAN RUIZ MD,BECKY BIRTHDATE: [birth year] DOS: 04/05/2018 PULMONARY PROGRESS NOTE SUBJECTIVE: She has been doing very well with gradual reduction in respiratory complaints noted. Denies any symptoms of chest pain or any hemoptysis. OBJECTIVE: VITAL SIGNS: Normal temperature, respiratory rate 20, heart rate 77, blood pressure 156/84-119/74, pulse ox saturation on 3 liters nasal cannula 97% saturation. HEENT: No acute change. NECK: Supple. CARDIOVASCULAR: S1, S2 audible. LUNGS: Noted without any wheeze or crackles. ABDOMEN: Soft, nontender. EXTREMITIES: Without any acute edema. LABORATORY DATA: Culture of the bronchial washing noted with moderate growth of Pseudomonas aeruginosa, nunez-sensitive, including sensitivity noted for fluoroquinolones. IMPRESSION: The patient with gradual improvement noted with acute exacerbation of chronic obstructive pulmonary disease, acute tracheobronchitis status post bronchoscopy. The infection was noted with Pseudomonas aeruginosa. PLAN OF TREATMENT: I agree with the use of ciprofloxacin for management of Pseudomonas aeruginosa upon discharge. The patient could not obtain her medication today and will be given 1 dose of Levaquin prior to discharge. BECKY MARTINEZ MD CM:PNTRANS [id number] BECKY RUIZ MD 04/05/18 1411 interface
--- NOTE | ~2018-04-01 | CON ---
[place], [place] REPORT OF CONSULTATION NAME: LIONEL FRANCISCO UNIT #: [id number] ROOM: 404 DOCTOR: JUAN RUIZ MDBECKY BIRTHDATE: [birth year] DOS: 04/02/2018 PULMONARY CONSULTATION, EVALUATION, AND MANAGEMENT CONSULTATION REQUESTED BY: Ana Mary MD. REASON FOR CONSULTATION: For the management of current ongoing acute respiratory symptoms, for possible consideration of bronchoscopy. HISTORY OF PRESENT ILLNESS: This is a 57-year-old white female, who has been known to me from the past. The patient has been admitted to the hospital from the office of Dr. Mary on 04/01/2018, the patient has been noted with symptoms of increased shortness of breath, which has been noted with gradual increase. The symptoms has been worsening, associated with cough, which remains nonproductive, [id number]-[id number] at times. The patient was also noted with symptoms of wheezing. Denies symptoms of chest pain. The patient has been started on the medical management for the acute exacerbation of chronic obstructive pulmonary disease at this time. The patient denies symptoms of hemoptysis. Denies symptoms of chest pain. REVIEW OF SYSTEMS: CONSTITUTIONAL SYMPTOMS: Fatigue and tiredness noted without symptoms of fever or chills. EYES: Denies any burning, redness, or tenderness. EARS, NOSE, AND THROAT SYMPTOMS: Denies sore throat, hoarseness, otalgia, or postnasal drainage. CARDIOVASCULAR SYSTEM: Denies anginal pain, edema, and pain of lower extremity. GASTROINTESTINAL: No dysphagia, nausea, vomiting, diarrhea, abdominal pain, hematemesis, melena, or hematochezia. SKIN: Denies abnormal lesions or rashes. MUSCULOSKELETAL SYMPTOMS: No acute joint pain, redness, or tenderness. CENTRAL NERVOUS SYSTEM: No dizziness, headache, diplopia, or syncopal episodes. Remaining systems were reviewed, they were noted all negative. PAST MEDICAL HISTORY, SURGICAL HISTORY, SOCIAL HISTORY, AND FAMILY HISTORY: Are reviewed with the patient and noted unchanged since my consultation, which was completed on 03/15/2018. Refer to that consultation for any details needed. The document is available in the [employer]. CURRENT MEDICATIONS: Administered were noted as use of vitamin D, lisinopril, aspirin, omeprazole, levothyroxine, Keppra, clonidine, Coreg, Lipitor, Solu-Medrol 30 mg q.8 hours, DuoNeb q.4 hours, Zithromax, and other p.r.n. medications. DRUG ALLERGIES: NOTED WITH ALLERGIES TO: 1. BACTRIM. 2. MUCINEX. 3. TRAMADOL. 4. CYCLOBENZAPRINE. [place], [place] REPORT OF CONSULTATION NAME: LIONEL FRANCISCO UNIT #: [id number] ROOM: 404 DOCTOR: BECKY SALAZAR MD BIRTHDATE: [birth year] PHYSICAL EXAMINATION: GENERAL: A 57 -year-old female patient, who has been currently noted to be awake and alert without any distress. Height of 5 feet 5 inches, weight of 176 pounds, and BMI 29. VITAL SIGNS: Normal temperature since admission, respiratory rate recorded 18-21, heart rate 70-79, and blood pressure 110/70-140/84. Pulse oxygen saturation of the patient noted on 3 liters nasal cannula 97% saturation. HEENT: Examination shows head was atraumatic. Eyes nonicterus. NECK: Supple. CARDIOVASCULAR: S1, S2 audible. LUNGS: The patient was noted with general reduction in breath sounds and expiratory wheezing. No crackles. ABDOMEN: Soft, nontender. Bowel sounds present. EXTREMITIES: No acute edema. VISIBLE SKIN: No lesions or rashes. MUSCULOSKELETAL: No acute deformities. CENTRAL NERVOUS SYSTEM: Cranial nerves 2-12 intact. LABORATORY DATA: The CBC of the patient that was done on 04/01/2018 shows WBC count 6.5, hemoglobin 10.8, hematocrit 35.7, and platelet count 100. BMP of the patient, normal BUN and creatinine and CO2 35. PT and PTT was noted normal. The chest x-ray of the patient that was done shows changes of COPD, hyperinflation, and MediPort noted in place in the left chest. IMPRESSION: 1. The patient who has been currently admitted to the hospital noted with acute recurrent exacerbation of chronic obstructive pulmonary disease with increased coughing, chest congestion, wheezing with previous admission to the hospital noted in the latter part of the 02/2018 and beginning of 03/2018. 2. History of nicotine use in the past, but stated not smoking cigarettes for the past 3-4 weeks. 3. The patient with thrombocytopenia was also noted with current CBC as well, at this time the etiology is unclear. PLAN OF MANAGEMENT: The patient has been noted to be scheduled for bronchoscopy done today. She was kept n.p.o. past midnight for that procedure. The risk and benefits were explained to the patient. She was agreeable for the procedure to be done today. In the meantime, continue the bronchodilator, current dose of corticosteroids, and the Zithromax. No other changes in treatment at this time will be necessary. Any treatment changes if needed after bronchoscopy will be ordered accordingly. [place], [place] REPORT OF CONSULTATION NAME: LIONEL FRANCISCO UNIT #: [id number] ROOM: 404 DOCTOR: JUAN RUIZ MD,BECKY BIRTHDATE: [birth year] BECKY MARTINEZ MD CM:CONSTR:REPORT OF CONSULTATION 0725 04/02/18 0801 interface
--- NOTE | ~2018-04-01 | PR ---
[place], [place] PROGRESS NOTE NAME: LIONEL FRANCISCO UNIT #: [id number] ROOM: 404 DOCTOR: JUAN RUIZ MD,BECKY BIRTHDATE: [birth year] DOS: 04/04/2018 SUBJECTIVE: The patient was seen and examined on 04/04/2018. She has been still noted coughing, chest congestion, wheezing, and shortness of breath has been gradually resolving. There were no symptoms of chest pain or hemoptysis. OBJECTIVE: VITAL SIGNS: For the patient which have been recorded showed normal temperature, respiratory rate 20, heart rate of 85, blood pressure 120/82. Pulse ox saturation noted on 3 liters nasal cannula 100% saturation this morning. HEENT: Shows head was atraumatic. Eyes nonicterus. NECK: Supple. CARDIOVASCULAR: S1, S2 audible. LUNGS: Noted with mild expiratory wheezing, nbjg-gb-[id number] decreased breath sounds bilaterally. ABDOMEN: Soft, flat, nontender, bowel sounds present. EXTREMITIES: Without any acute edema. IMPRESSION: The patient who has been currently noted stable at the present time with acute exacerbation of chronic obstructive pulmonary disease. Bronchial washing culture noted gram-negative bacilli result of a tracheobronchitis. The sensitivity results are fine organism identification remains pending. PLAN OF TREATMENT: Continue the patient's current medical management, bronchodilators, oxygen supplementation, other await final culture results to make any suggestion of changes in the antibiotic therapy and the discharge planning. In the meantime, continue other supportive therapy, plan of management and care. BECKY MARTINEZ MD CM:PNTRANS [id number] BECKY RUIZ MD 04/04/18 2243 interface
--- NOTE | ~2018-04-01 | PROC NOTE ---
[place], [place] PROCEDURE NOTE NAME: LIONEL FRANCISCO UNIT #: [id number] ROOM: 404 DOCTOR: JUAN RUIZ MD,BECKY BIRTHDATE: [birth year] DOS: 04/02/2018 FIBEROPTIC BRONCHOSCOPY PREOPERATIVE DIAGNOSES: The patient with persistent cough and wheezing, nonresolving. POSTOPERATIVE DIAGNOSES: Removal of copious amount of mucus, impaction of mucus plug mainly from the right endobronchial tree. Small amount of secretion in the left endobronchial tree was also noted. PROCEDURE DESCRIPTION: Informed consent obtained from the patient. The patient was brought to the operating room and placed in supine position. Conscious sedation was administered by the Anesthesia Department. After achieving appropriate conscious sedation, airway was introduced into the mouth. Bronchoscope was advanced to the vocal cord to the tracheal lumen. Tracheal lumen was noted with moderate amount of very thick mucus secretion, greenish in color as well, which was suctioned out and cleared to the clair level. Right mainstem bronchus, right upper, right middle, right lower bronchus were noted with moderate to large amount of thick mucus secretion, which appeared to be green in color as well. The impaction of the mucus was cleared from the endobronchial tree. Left upper, lingula, and lower lobe bronchi were noted only with small amount of secretions. Washing was taken from those areas as well. Procedure was well tolerated by the patient without any difficulty. Postoperative findings will be discussed with the patient once the patient recovers the effects of acute sedation. Postoperative findings were discussed with Dr. Ana Mary as well. BECKY MARTINEZ MD CM:PROCNOTE:PROCEDURE NOTE [id number] BECKY RUIZ MD
--- NOTE | ~2018-04-01 | WRIGHTHP ---
[place], [place] PATIENT HISTORY AND PHYSICAL EXAM NAME: LIONEL FRANCISCO UNIT #: [id number] ROOM: 404 DOCTOR: JOSE JUAN CORONA MD BIRTHDATE: [birth year] DOS: 04/01/2018 HISTORY OF PRESENT ILLNESS: This patient is very well known to us. The patient comes into the office with complaints of shortness of breath. She had already taken antibiotics and steroids as an outpatient, was not getting any better, so the patient was advised admission to the hospital. Denies having any chest pains or palpitations, does not have any fever or chills, does not have any abdominal pain, nausea or any emesis. PAST MEDICAL HISTORY: Significant for; 1. COPD. 2. Recent hospitalization for precordial chest pain. 3. Moderate cigarette smoker. 4. Benign hypertension. 5. Chronic back pain. 6. Generalized anxiety disorder. 7. Bipolar disorder. MEDICATIONS: That the patient is currently on are lisinopril, levothyroxine, omeprazole, prednisone, clonidine, breathing treatment, Keppra, Coreg, aspirin, atorvastatin, hydrocodone, Xanax, nicotine patch. SOCIAL HISTORY: Smoker of about half pack of cigarettes a day. Denies using any alcohol. PHYSICAL EXAMINATION: GENERAL: She is awake and alert and oriented significant respiratory distress with accessory muscles working. VITAL SIGNS: Graphic trend shows a pressure of 130/70, pulse of 86, afebrile, respirations 18. LUNGS: Diminished breath sounds, tachypneic. HEART: Regular. ABDOMEN: Obese. EXTREMITIES: Without any edema. ASSESSMENT AND PLAN: 1. Acute exacerbation of chronic obstructive pulmonary disease, failed outpatient treatment with steroids and antibiotics, so the patient will be admitted for intravenous antibiotics and intravenous steroids. Consultation with Dr. Mcfadden is obtained for possible bronchoscopy. 2. Chest pains with recent hospitalization. The patient is committed to have a stress test, which has already been scheduled. 3. Benign hypertension, controlled. 4. Moderate cigarette smoker. Advised and counseled to quit smoking. [place], [place] PATIENT HISTORY AND PHYSICAL EXAM NAME: LIONEL FRANCISCO UNIT #: [id number] ROOM: 404 DOCTOR: JOSE JUAN CORONA MD BIRTHDATE: [birth year] JOSE JUAN CORONA MD CM:RYANS:PATIENT HISTORY AND PHYSICAL EXAMINATION 2 2 JOSE JUAN CORONA MD 04/17/18811 interface
--- NOTE | ~2018-04-01 | DS ---
[place], [place] DISCHARGE SUMMARY NAME: LIONEL FRANCISCO UNIT #: [id number] ROOM: 404 DOCTOR: JOSE JUAN CORONA MD BIRTHDATE: [birth year] DOS: HOSPITAL COURSE: The patient is very well known to us. She was treated as an outpatient with antibiotic and steroids for exacerbation of COPD and acute tracheobronchitis. She was not getting any better. She was admitted for bronchoscopy. After admission, she was placed on IV steroids and IV antibiotics. Dr. Mcfadden was consulted. Bronchoscopy was performed. Bronch cultures are showing negative bacteria, no identification is available. The patient has been increasingly anxious, but no further changes in the medications have been made. She did have fairly controlled blood sugars, a few runs of PACs were noted on the monitor. She is scheduled for a stress test as an outpatient which the patient is encouraged to get done. This morning, the patient is stable. The plan is to discharge her on a tapering dose of prednisone down to 5 mg daily and Cipro 500 mg twice a day in addition to her home medications. JOSE JUAN CORONA MD CM:DISCHARG [phone] JOSE JUAN CORONA MD 04/05/18 0511 interface
--- NOTE | ~2018-04-01 | DS ---
[place], [place] DISCHARGE SUMMARY NAME: LIONEL FRANCISCO UNIT #: [id number] ROOM: 404 DOCTOR: JOSE JUAN CORONA MD BIRTHDATE: [birth year] DOS: 04/03/2018 HISTORY OF PRESENT ILLNESS: The patient is very well known to us, 57 years old who comes in with complaints of difficulty breathing. The patient was seen as an outpatient in the office, was prescribed antibiotics and steroids, and continued to complain of increasing difficulty breathing. She was hypoxic and so was admitted to the hospital. She denies having any chest pains or palpitations. Does not have any fever or chills. Does not have any abdominal pain, nausea and emesis. PAST MEDICAL HISTORY: Significant for: 1. COPD. 2. Moderate cigarette smoker. 3. Hypothyroidism. 4. Bipolar disorder. 5. Chronic back pain. 6. Benign hypertension. 7. Generalized anxiety disorder. CURRENT MEDICATIONS: Breathing treatments, aspirin, atorvastatin, Coreg, clonidine, Vicodin, Keppra, levothyroxine, lisinopril, omeprazole. SOCIAL HISTORY: Nonsmoker; she was a heavy smoker until about 2 months ago. Denies using any alcohol. PHYSICAL EXAMINATION: GENERAL: The patient is awake and alert and oriented. VITAL SIGNS: Graph trend shows the pressure of 132/70, pulse of 76, respirations 14. NECK: Supple. No lymph nodes. LUNGS: Diminished breath sounds. No wheezes, rales or rhonchi heard. HEART: Regular. ABDOMEN: Obese. EXTREMITIES: Without any edema. ASSESSMENT AND PLAN: 1. Acute exacerbation of chronic obstructive pulmonary disease, on IV steroids. 2. Acute tracheobronchitis with no improvement in her cough after multiple antibiotics as an outpatient. The patient was seen after bronchoscopy in the OR, Dr. Mcfadden has already done the bronch, and the patient is already starting to feel better. Await the culture of the bronch; if it is negative, plans to discharge to home. 3. Benign hypertension, controlled. Echocardiogram recently done is normal with an ejection fraction of 60%. [place], [place] DISCHARGE SUMMARY NAME: LIONEL FRANCISCO UNIT #: [id number] ROOM: 404 DOCTOR: JOSE JUAN CORONA MD BIRTHDATE: [birth year] JOSE JUAN CORONA MD CM:ANN [id number] JOSE JUAN CORONA MD 04/03/18 1342 interface
--- NOTE | ~2018-04-01 | EKG ---
[place], [place] ELECTROCARDIOGRAM REPORT NAME: LIONEL FRANCISCO UNIT #: [id number] ROOM: 404 DOCTOR: JUAN RUIZ MD,BECKY BIRTHDATE: [birth year] DOS: 04/01/2018 ELECTROCARDIOGRAM NOTE DATE AND TIME OF PROCEDURE: 04/01/2018 at 4:46 p.m. FINDINGS: Electrocardiogram for the patient shows normal sinus rhythm. EKG was otherwise noted normal without any abnormalities. BECKY MARTINEZ MD CM:EKGRPT:ELECTROCARDIOGRAM REPORT [id number] BECKY RUIZ MD
--- NOTE | ~2018-04-01 | PR ---
[place], [place] PROGRESS NOTE NAME: LIONEL FRANCISCO UNIT #: [id number] ROOM: 404 DOCTOR: JOSE JUAN CORONA MD BIRTHDATE: [birth year] DOS: SUBJECTIVE: The patient is feeling much better. Her cough and shortness of breath have subsided. OBJECTIVE: VITAL SIGNS: Blood pressure is 142/72, pulse of 72, respirations 18, temperature 98.1. LUNGS: Diminished breath sounds. No wheezes this morning. HEART: Regular. ABDOMEN: Obese, soft. EXTREMITIES: Without any edema. ASSESSMENT AND PLAN: 1. Acute exacerbation of chronic obstructive pulmonary disease. 2. Acute tracheobronchitis, on antibiotics, status post bronchoscopy. Bronch cultures are pending. If the cultures do not grow any bacterial growth, the plan is to discharge her to home tomorrow. JOSE JUAN CORONA MD CM:PNTRANS 7 [phone] JOSE JUAN CORONA MD 04/03/188 interface
--- NOTE | ~2018-04-01 | PR ---
[place], [place] PROGRESS NOTE NAME: LIONEL FRANCISCO UNIT #: [id number] ROOM: 404 DOCTOR: JOSE JUAN CORONA MD BIRTHDATE: [birth year] DOS: 04/04/2018 SUBJECTIVE: The patient is anxious and upset about a variety of problems that she had with the staff. OBJECTIVE: VITAL SIGNS: Blood pressure is 106/75, pulse of 83, respirations 20, temperature 97.8. LUNGS: Diminished breath sounds, fairly clear. HEART: Regular. ABDOMEN: Obese. EXTREMITIES: Without any edema. LABORATORY DATA: Urine culture showing preliminary normal kenn with moderate gram-negative bacteria. I do not have complete identification yet. ASSESSMENT AND PLAN: 1. Acute exacerbation of chronic obstructive pulmonary disease, improving slowly. 2. Generalized anxiety disorder with panic attacks causing some of her shortness of breath. I advised the patient to take her anxiolytics. 3. Benign hypertension, controlled. Hopefully, the plan is to discharge her to home once we have the final culture results. JOSE JUAN CORONA MD CM:PNTRANS [id number] JOSE JUAN CORONA MD 04/05/18 0029 interface
[~2018-04-01 11:27] MED LIST changes: +MEDROL DOSEPAK4 MG PO
[2018-04-01 12:00] VITALS: BP 147/85
[2018-04-01] MEDS ORDERED: PREDNISONE5 MG PO (12:52)
[2018-04-01] MEDS ORDERED: CLONIDINE HCL0.1 MG PO (12:53)
[2018-04-01] MEDS ORDERED: COREG12.5 M1 PO (12:55)
[2018-04-01] MEDS ORDERED: LIPITOR40 MG PO (12:56)
[2018-04-01] MEDS ORDERED: PROAIR HFA8.5 GM INH (13:00)
[2018-04-01] MEDS ORDERED: VITAMIN D50000 UNIT PO (13:06)
[2018-04-01 13:49] LABS: BASO % 0.5 % (0.0-1.0); EOS # 0.1 10*3/uL (0.0-0.4); EOS % 1.4 % (1.0-4.0); HEMATOCRIT 35.7 % (37.0-47.0); HEMOGLOBIN 10.8 g/dl (12.0-16.0); LYMPH # 1.6 10*3/uL (1.3-4.4); MEAN CORPUSCULAR HGB CONC 30.3 g/dl (33.0-37.0); MEAN PLATELET VOLUME 10.4 fl (9.6-12.3); MONO # 0.3 10*3/uL (0.1-1.0); NEUT # 4.5 10*3/uL (2.3-7.9); NEUT % 69.8 % (47.0-73.0); PLATELET COUNT AUTOMATED 100 10*3/uL (130-400); RED BLOOD COUNT 3.72 10*6/uL (4.10-5.10); RED CELL DISTRI WIDTH 13.4 % (0-14.5); WHITE BLOOD COUNT 6.5 10*3/uL (4.8-10.8)
[2018-04-01 13:57] LABS: BUN 9 mg/dl (7-24); CHLORIDE 104 mmol/L (98-107); CREATININE 0.69 mg/dL (0.55-1.02); POTASSIUM 4.2 mmol/L (3.5-5.1); SODIUM 145 mmol/L (136-145)
[2018-04-01 16:00] VITALS: BP 154/82
[2018-04-01 20:00] VITALS: BP 131/82
[2018-04-02] VITALS (8 sets, daily range): BP systolic 110–160; BP diastolic 58–85
[2018-04-02] MEDS ORDERED: MIRALAX POWDER255 G1 PO (22:30)
[2018-04-03] VITALS: BP 142/72
[2018-04-03 08:00] VITALS: BP 126/74
[2018-04-03 12:00] VITALS: BP 158/82
[2018-04-03 16:00] VITALS: BP 117/81
[2018-04-03 16:09] LABS: ACID FAST SPEC PROCESSING Concentration (.)
[2018-04-03 20:00] VITALS: BP 157/89
[2018-04-04 08:00] VITALS: BP 106/75
[2018-04-04 12:00] VITALS: BP 120/82
[2018-04-04 16:00] VITALS: BP 115/77
[2018-04-04 20:00] VITALS: BP 135/76
[2018-04-05] VITALS: BP 119/74
[2018-04-05] MEDS ORDERED: PREDNISONE5 MG PO (04:54)
[2018-04-05] MEDS ORDERED: CIPRO500 MG PO (04:54)
[2018-04-05 08:00] VITALS: BP 156/84
== END 2018-04-05 11:16 | disposition home or self-care (01) | DRG 192 ==
LOC: 4E 11:27
PROVIDERS: Internal Medicine; Internal Medicine Critical Care Medicine
PROC: 0BC98ZZ Extirpation of Matter from Lingula Bronchus, Via Natural or Artificial Opening Endoscopic (ICD-10-PCS; principal; 2018-04-02)
PROC: 0BC48ZZ Extirpation of Matter from Right Upper Lobe Bronchus, Via Natural or Artificial Opening Endoscopic (ICD-10-PCS; 2018-04-02)
PROC: 0BC88ZZ Extirpation of Matter from Left Upper Lobe Bronchus, Via Natural or Artificial Opening Endoscopic (ICD-10-PCS; 2018-04-02)
PROC: 0BC58ZZ Extirpation of Matter from Right Middle Lobe Bronchus, Via Natural or Artificial Opening Endoscopic (ICD-10-PCS; 2018-04-02)
PROC: 0BC38ZZ Extirpation of Matter from Right Main Bronchus, Via Natural or Artificial Opening Endoscopic (ICD-10-PCS; 2018-04-02)
PROC: 0BC78ZZ Extirpation of Matter from Left Main Bronchus, Via Natural or Artificial Opening Endoscopic (ICD-10-PCS; 2018-04-02)
PROC: 0BC68ZZ Extirpation of Matter from Right Lower Lobe Bronchus, Via Natural or Artificial Opening Endoscopic (ICD-10-PCS; 2018-04-02)
PROC: 0BCB8ZZ Extirpation of Matter from Left Lower Lobe Bronchus, Via Natural or Artificial Opening Endoscopic (ICD-10-PCS; 2018-04-02)
PROC: 0BC18ZZ Extirpation of Matter from Trachea, Via Natural or Artificial Opening Endoscopic (ICD-10-PCS; 2018-04-02)
DX: J44.0 Chronic obstructive pulmonary disease with (acute) lower respiratory infection (principal); D69.6 Thrombocytopenia, unspecified; J44.1 Chronic obstructive pulmonary disease with (acute) exacerbation; F17.210 Nicotine dependence, cigarettes, uncomplicated; E03.9 Hypothyroidism, unspecified; F31.9 Bipolar disorder, unspecified; G89.29 Other chronic pain; M54.9 Dorsalgia, unspecified; I10 Essential (primary) hypertension; F41.1 Generalized anxiety disorder; E66.9 Obesity, unspecified; J20.9 Acute bronchitis, unspecified; B96.5 Pseudomonas (aeruginosa) (mallei) (pseudomallei) as the cause of diseases classified elsewhere; F41.0 Panic disorder [episodic paroxysmal anxiety]; Z88.8 Allergy status to other drugs, medicaments and biological substances; Z88.1 Allergy status to other antibiotic agents; Z68.29 Body mass index [BMI] 29.0-29.9, adult

== ENCOUNTER 2018-08-21 00:27 | Emergency (ER) | payer MEDICAID ==
[~2018-08-21] VITALS: Ht 165.1 cm; Wt 75.3 kg
[~2018-08-21 00:27] MED LIST changes: +CLONIDINE HCL0.1 MG PO; +COREG12.5 M1 PO; +MIRALAX POWDER255 G1 PO; +PROAIR HFA8.5 GM INH; +VITAMIN D50000 UNIT PO
[2018-08-21 00:37] VITALS: BP 174/93
== END 2018-08-21 00:55 | disposition left against medical advice (07) ==
LOC: ED 00:27
DX: R06.02 Shortness of breath (principal); J44.9 Chronic obstructive pulmonary disease, unspecified; Z88.6 Allergy status to analgesic agent; Z88.2 Allergy status to sulfonamides; Z88.8 Allergy status to other drugs, medicaments and biological substances; Z79.899 Other long term (current) drug therapy; Z79.2 Long term (current) use of antibiotics; Z79.82 Long term (current) use of aspirin

== ENCOUNTER 2018-09-12 12:10 | Emergency (ER) | payer MEDICAID ==
[~2018-09-12] VITALS: Ht 165.1 cm; Wt 75.7 kg
[2018-09-12 13:03] VITALS: BP 128/64
== END 2018-09-12 13:36 | disposition home or self-care (01) ==
LOC: ED 12:10
DX: R51 Headache (principal); I10 Essential (primary) hypertension; J44.9 Chronic obstructive pulmonary disease, unspecified; Z88.6 Allergy status to analgesic agent; Z88.2 Allergy status to sulfonamides; Z88.8 Allergy status to other drugs, medicaments and biological substances; Z79.2 Long term (current) use of antibiotics; Z79.82 Long term (current) use of aspirin; Z79.899 Other long term (current) drug therapy

== ENCOUNTER → 2018-12-03 | Outpatient (CLI) | payer MEDICAID ==
[~2018-12-03] MED LIST changes: +BUSPAR15 MG PO; +DOXYCYCLINE100 M3 PO; -KEPPRA500 MG PO; +KEPPRA750 MG PO; +LEVOTHYROXINE50 MCG PO; +MILLIPRED5 MG PO; +VISTARIL25 MG PO; +ZESTRIL40 MG PO
--- NOTE | 2018-12-03 13:28 | NUR ---
PT HERE FOR MEDIPORT FLUSH. PREPPED [facility] PER POLICY. ACCESSED WITH NONCORING NEEDLE. PROMPT BLOOD RETURN THEN FLUSHED WITH HEPARIN PER POLICY. NEEDLE REMOVED. NO BLEEDING NOTED. BANDAID APPLIED. TOLERATED WELL. CORNELIA MUJICA RN
== END | disposition home or self-care (01) ==
LOC: MEDIPORT 12:54
DX: Z45.2 Encounter for adjustment and management of vascular access device (principal)